=== PATIENT | male | born 1940 | race African-American/Black ===

== ENCOUNTER 2023-10-21 05:06 | Emergency (ER) | payer MEDICARE, OTHER ==
[~2023-10-21] VITALS: Ht 182.9 cm; Wt 67.0 kg
[2023-10-21 05:12] VITALS: BP 146/81; PULSE 77; RESP 18; TEMP 99.1; O2SAT 98
[2023-10-21] MEDS ORDERED: HYDR-4001 MT (05:34)
[2023-10-21] MEDS ORDERED: P20 PO (05:34)
[2023-10-21] MEDS: HYDROCODONE/ACETAMINOPHEN 5/325MG TABLET PO STA (05:44)
[2023-10-21] MEDS: PREDNISONE 20MG TABLET PO STA (05:44)
== END 2023-10-21 06:08 | disposition home or self-care (01) ==
LOC: ER 05:06
DX: M54.40 Lumbago with sciatica, unspecified side (principal)
CPT/HCPCS: 99283; J7512